=== PATIENT | female | born 1960 | race Two or more races ===

== ENCOUNTER 2025-02-03 09:22 | Outpatient (CLI) | payer BC, SELFPAY | END 2025-02-03 09:23 | disposition home or self-care (01) | PROVIDERS: PCP Family Medicine; Visit Provider Family Medicine | DX: Z00.00 Encounter for general adult medical examination without abnormal findings (principal); D64.9 Anemia, unspecified; Z13.29 Encounter for screening for other suspected endocrine disorder; F32.A Depression, unspecified; F41.9 Anxiety disorder, unspecified; F43.21 Adjustment disorder with depressed mood; R51.9 Headache, unspecified; G47.00 Insomnia, unspecified; M54.89 Other dorsalgia | CPT/HCPCS: 82607; 82728; 84439; 84443 ==

== ENCOUNTER 2025-04-08 08:00 | Outpatient (RCR) | payer BC, SELFPAY ==
--- NOTE | 2025-03-12 07:56 | PT.OPEX ---
[facility] Eval PT [facility] Outpatient Eval Start: 03/11/25 12:53 Freq: Status: Active Protocol: Document 03/11/25 15:07 ENM (Rec: 03/11/25 15:09 ENM [id number]) E-signed By Sowmya Galaviz, DPT Physical Therapy Outpatient Evaluation Insurance Information Recert Due Date 06/09/25 Insurance Name Medicaid,[employer] Medical Diagnosis dorsalgia, unspecified Treating Diagnosis right arm pain, muscle weakness, decreased shoulder ROM , right shoulder pain Referring MD Miles Subjective Preferred Name Lisha Jones Patient presents to PT for complaint of upper right arm pain. It feels like a sharp pain that comes on. She has had it for years. The pain is always there but sharper at time even when she isn't using it. As she tries to do more it will get sharper. She cannot sleep on her right side. She does not feel like she has strength to use it. Has a hard time feeding the baby and reaching or lifting with the arm. They had a wrist fracture on the left side a few years ago and because of this they often carry things on their right side. It seems to start in the anterior shoulder and goes to the elbow but doesn't cross it. Denies any numbness in the arms. Does have a history for her headaches. Is right handed. PMHx: Hx of L wrist fracture When it started: years ago Describes it as: resting pain that increase in sharpness Timing: varies Location: from anterior shoulder to elbow Irritability: mod Severity: mod-severe Pain Comments at its worse: 04/12 easing: alcohol and chalo water helps, topical ointment aggravating: reaching overhead, feeding the baby, Current Work Status Retired Objective Other/Pertinent Shoulder AROM: Objective Flexion L 136 R 118 Abduction L WNL R 110 IR L WNL R mid glute ER L WNL R unable to perform *all limited by pain and weakness Passive shoulder motion is also limited and painful Cervical: Flexion WNL Extension WNL SB tightness on R compared to L with SB Rot WNL Strength: Shoulder abduction L 4/5 R 4-/5 Shoulder flexion L 4/5 R 4-/5 limited by pain Shoulder IR L 4-/5 R 3+/5 limited by pain Shoulder ER L 4-/5 R 3+/5 limited by pain Palpation/joint mobility: posterior glide of RGHJ limited and painful compared to L + for pain palpating anterior shoulder, biceps, R UT and levator Assessment Assessment/ Patient is a 64 year old female presenting with chronic Impression right shoulder pain. They have had these symptoms for years that have not improved. They always have a baseline amount of pain and random sharper pains that occur at rest or with movement. They note difficulty with reaching overhead and helping care for their grandchild. Upon assessment patients concordant pains brought on with all shoulder ROM and resisted muscle testing. They are very tender to palpation along anterior shoulder, biceps, UT and levator. Their right shoulder joint mobility is limited and painful compared to contralateral side. Their greatest weakness is into shoulder IR and ER. Patients evaluation was limited due to pain. Symptoms appear to be capsular in nature due to degree of motion loss and limitations into ER>ABD>IR . Kellie would greatly benefit from skilled PT to address impairments stated above in order to perform all functional mobility and household duties without significant discomfort or difficulty. Primary Functional reaching, lifting, helping to feed the baby Limitations Plan of Care Rehabilitation Good Potential Rehabilitation fair-good due to severity and chronicity of symptoms Potential Comments Physical Therapy In 6-8 visits: Goals 1. Patient will be IND with HEP and self management of symptoms 2. Patient will display pain free shoulder elevation to at least 125 degs for improved ability to perform self cares/ADLs 3. Patient will improve global right shoulder strength to at least 4/5 in order to carry objects with less difficulty 4. Patient will be able to make it through their day without increase in sharp pains to progress toward PLOF 5. Patient will be able to feed the baby without any difficulty or discomfort Coordination/ Referral Source Communication With Treatment Plan/ Dry Needling,Electrical Stimulation,Heat,Ice/Cold/ Direct Interventions Vasopneumatic,Joint Mobilization,Manual Therapy, Neuromuscular Re-ed,Self-Care/Home Management, Therapeutic Activities,Therapeutic Exercises Frequency/Duration 1x a week for 6-8 weeks Patient Will Be Completion of LTG(s),Independent w/HEP Discharged From Therapy Evaluation Billing Untimed Code 28 Treatment Minutes Complexity Low Certification Information Initial 03/11/25 Certification Date Ending Certification 06/09/25 Date Provider Signature Yes Required Provider Signature POC & Medical Necessity Shows Agreement With Physician NPI Number Write NPI# Here Physician Comment/ : Change Physician Signature Please Sign/Date Here & Date Requested
== END 2025-08-06 23:59 | disposition home or self-care (01) ==
PROVIDERS: PCP Family Medicine; Visit Provider Family Medicine
DX: M54.9 Dorsalgia, unspecified (principal); Z51.89 Encounter for other specified aftercare
CPT/HCPCS: 77080; 97110; 97140; 97161; T1013

== ENCOUNTER 2025-04-08 14:12 | Outpatient (CLI) | payer BC, SELFPAY ==
--- NOTE | 2025-04-08 14:30 | CRLHL7_ITS ---
For Patients: As a result of the Century Cures Act, medical imaging exams and procedure reports are released immediately into your electronic medical record. You may view this report before your referring provider. If you have questions, please contact your health care provider. XR DXA Bone Mineral Density (BMD) Reason for exam: Age-related osteoporosis without current pathology. Current height (inches): 59.5 Weight (lbs.): 167.0 Menopause age: 48 Ethnicity: 1. Have you had a previous hip or vertebral fracture? No. 2. Have you had any fractures during your adult life which did not result from significant trauma (e.g., auto accident)? Yes. 3. Did either of your parents have a hip fracture? No. 4. Do you smoke? Yes. 5. Have you ever taken Glucocorticoids? No. 6. Do you have rheumatoid arthritis? No. 7. Do you have secondary osteoporosis? No. 8. Do you drink 3 or more alcoholic drinks per day? No. 9. Are you being treated for osteoporosis? No. 10. Have you ever taken any of the following medications: Actonel, Evista, Fosamax, Miacalcin, Reclast, Boniva, Forteo, HRT (i.e., estrogen/hormone therapy), Protelos, Prolia, Vitamin D, Calcium, other ??? please specify. ANSWER: No. 11. Do you have any of the following medical conditions: Anorexia or bulimia, asthma or emphysema, end stage renal disease, hyperparathyroidism, any seizure disorders, cancer, inflammatory bowel diseases, hysterectomy, other ??? please specify. ANSWER: No. 12. What was your maximum height (inches)? 59.5. 13. Do you perform weightbearing exercise regularly? No. 14. Do you regularly consume dairy products? No. 15. Do you drink caffeinated beverages? Yes. 16. At what age did your period start? 9. 17. Are you premenopausal? No. 18. How many full-term pregnancies have you had? 2. 19. Have you ever missed your period for more than 6 months in a row (not including or menopause)? No. TECHNIQUE: Bone mineral density study was performed using the [employer]. FINDINGS: The results of the study expressed as bone mineral density (BMD) are as follows: Lumbar Spine L1 to L4: BMD: 1.129 g/cm2. T-score: 0.7. Z-score: 2.6. Neck Left: BMD: 0.797 g/cm2. T-score: -0.5. Z-score: 0.9. Right: BMD: 0.862 g/cm2. T-score: 0.1. Z-score: 1.5. Total Left: BMD: 0.942 g/cm2. T-score: 0.0. Z-score: 1.1. Right: BMD: 1.021 g/cm2. T-score: 0.6. Z-score: 1.7. IMPRESSION: Normal bone density. BASILIO COWART M.D. Diagnostic Radiologist [email or web address] Transcribed: 5:[address]/Dictated by: Basilio Cowart MD @ 04/09/2025 8:36:00 AM (Electronically Signed)
== END 2025-04-08 14:13 | disposition home or self-care (01) ==
LOC: RAD 14:23
PROVIDERS: PCP Family Medicine; Visit Provider Family Medicine
DX: M81.0 Age-related osteoporosis without current pathological fracture (principal)
CPT/HCPCS: 77080; T1013

== ENCOUNTER 2025-05-27 08:12 | Outpatient (CLI) | payer BC, SELFPAY ==
--- NOTE | 2025-05-27 08:15 | CRLHL7_ITS ---
For Patients: As a result of the Century Cures Act, medical imaging exams and procedure reports are released immediately into your electronic medical record. You may view this report before your referring provider. If you have questions, please contact your health care provider. INDICATION: BILATERAL SCREENING MAMMOGRAM, ASYMPTOMATIC 65 Y/O FEMALE COMPARISON: BASELINE. TECHNIQUE: Digital mammogram in CC and MLO projections including computer-aided detection (CAD) and tomosynthesis. BREAST COMPOSITION: There are scattered areas of fibroglandular density. FINDINGS: No suspicious findings. ASSESSMENT: BI-RADS 1 Negative RECOMMENDATION: Annual screening mammogram. A lay language report of this examination will be provided to the patient. Dictated by: Agustina Mcghee MD @ 05/28/2025 20:46:33 (Electronically Signed)
== END 2025-05-27 08:13 | disposition home or self-care (01) ==
LOC: MAMMO 08:14
PROVIDERS: PCP Family Medicine; Visit Provider Family Medicine
DX: Z12.31 Encounter for screening mammogram for malignant neoplasm of breast (principal)
CPT/HCPCS: 77063; 77067